=== PATIENT | female | born 1950 | race African-American/Black ===

== ENCOUNTER 2023-01-12 12:35 | Emergency (ER) | payer OTHER ==
--- OUTSIDE RECORDS SUMMARY | 2023-01-12 12:38 | XMS REPORT | Continuity of Care Document ---
:1950 Author Organization [facility] t Address [address] 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 2022 MEDICARE ADVANTAGE 00:00:00 Problems Condition Condition Condition Status Onset Resolution Last Treating Co mments Source Name Details Category Date Date Treatment Clinician Date Pain of Pain of Disease Active 2020- Univers maxillary maxillary 3-26 ity of sinus sinus 00:00: [address] Hypertensi Hypertensi Disease Active 2019-0 U nivers ve ve 9-16 ity of disorder disorder 00:00: [address] Hyperchole Hyperchole Disease Active 2019-0 U nivers sterolemia sterolemia 9-16 it y of 00:00: [address] Allergies, Adverse Reactions, Alerts Allergy Allergy Status Severity Reaction(s) Onset Inactive Treating Comm ents Source Name Type Date Date Clinician NO KNOWN Drug Active Univers ALLERGIE Class ity of S [facility] Social History Social Habit Start Date Stop Date Quantity Comments Source Exposure to 2022-05-27 2022-06-06 Not sure [facility]-CoV-2 00:00:00 13:41:00 [facility] [place] (event) Branch Tobacco use and 2022-06-06 2022-06-06 Smokeless tobacco Un iversity of exposure 00:00:00 00:00:00 non-user [facility] Sex Assigned At [birth year] Universit y of 00:00:00 00:00:00 [facility] Smoking Status Start Date Stop Date Source Tobacco smoking consumption [facility] Never smoked tobacco [facility] Medications Ordered Filled Start Stop Current Ordering Indication Dosage Frequency Signature Comments Components Source Medication Medication Date Date Medication? Clinician (SIG) Name Name water for 2021-07- No PRN, Univers irrigation 08-14 Starting ity of irrigation 18:00: 18:42 [place] solution 00 :26 06/14/22 Medical at 1200, Branch Until Sun06/14/22 at 1242, Routine, Intra-op sodium 2021-07- No PRN, Univers chloride 08-14 Starting ity of (NS) 17:59: 18:42 on Sun [place] injection 00 :06/14/22 Medica l at 1159, Branch Until Sun06/14/22 at 1242, Routine, Intra-op neomycin-po 2021-07- No PRN, Unive rs lymyxin-dex 08-14 Starting ity of amethasone 17:59: 18:42 [place] (MAXITROL) 00 :26 06/14/22 Medic al 3.5 at 1159, Branch mg/g-10,000 Until Sun unit/g-0.1 06/14/22 % at 1242, ophthalmic Routine, ointment Intra-op Hyaluronida 2021-07- No PRN, Unive rs se, Human 08-14 Starting ity o f Recomb. 17:53: 18:42 on Sun [place] (HYLENEX) 00 :26 06/14/22 Medica l injection at 1153, Branch Until Sun06/14/22 at 1242, Routine, Intra-op eye block 2021-07- No PRN, Univers syringe 11 08-14 Starting ity of mL 17:52: 18:42 on Wed [place] 00 :26 06/14/22 Medical at 1152, Branch Until Sun06/14/22 at 1242, Intra-op EPINEPHrine 2021-07- No PRN, Unive rs 1:1,000 (08-14 Starting ity of mg/mL) 17:48: 18:42 on Sun [place] (ADRENALIN) 00 :26 06/14/22 Medi emiliano injection at 1148, Branch Until Sun06/14/22 at 1242, Routine, Intra-op chondroitin 2021-07- No PRN, Unive rs sulf-sod 08-14 Starting ity of hyaluronate 17:48: 18:42 on Sun [place] (DUOVISC 00 :06/14/22 Medical VISCO at 1148, Branch ELASTIC) Until Sun intraocular 06/14/22 injection at 1242, Routine, Intra-op dexamethaso 2021-07- No PRN, Unive rs ne 08-14 Starting ity of (DECADRON 17:48: 18:42 on Sun [place] PHOSPHATE) 00 :06/14/22 Medic al injection at 1148, Branch Until Sun06/14/22 at 1242, Routine, Intra-op ceFAZolin 2021-07- No PRN, Univers (ANCEF) 08-14 Starting ity of injection 17:47: 18:42 on Wed [place] 00 :26 06/14/22 Medical at 1147, Branch Until Sun06/14/22 at 1242, DARRELL, Intra-op carbachoL 2021-07- No PRN, Univers (MIOSTAT) 08-14 Starting ity o f 0.01 % 17:46: 18:42 on Wed [place] intraocular 00 :26 06/14/22 Medi emiliano injection at 1146, Branch Until Sun06/14/22 at 1242, Routine, Intra-op balanced 2021-07- No PRN, Univers salt irrig 08-14 Starting ity of soln comb1 17:46: 18:42 [place] (BSS PLUS) 00 :26 06/14/22 Medic al ophthalmic at 1146, Branc h solution Until Sun 500 mL bag 06/14/22 at 1242, Routine, Intra-op cyclopent 2021-07- No .5mL 0.5 mL, Univ ers 1%-tropic -30 11-30 Right Eye, ity of 1%-phenyl 17:00: 16:56 ONCE, 1 [place] 2.5%-ketor 00 :00 dose, On Medic al 0.5% Sun Branch (MYDRIATIC 06/14/22 #5) at 1100, ophthalmic Routine, solution DSU Pre-op syringe 0.5 mL lactated 2021-07- No 1000mL at 42 Unive rs ringers IV 1-30 11-30 mL/hr, ity of infusion 17:00: 16:54 1,000 mL, [place] 1,000 mL 00 :00 IV Medical Infusion, Branch ONCE, 1 dose, On Sun06/14/22 at 1100, Routine, DSU Pre-op cyclopent 2021-07- No .5mL 0.5 mL, Univ ers 1%-tropic 08-14 Right Eye, ity of 1%-phenyl 17:00: 16:56 ONCE, 1 [place] 2.5%-ketor 00 :00 dose, On Medic al 0.5% Sun Branch (MYDRIATIC 06/14/22 #5) at 1100, ophthalmic Routine, solution DSU Pre-op syringe 0.5 mL lactated 2021-07 No 1000mL at 42 Unive rs ringers IV 1-30 11-30 mL/hr, ity of infusion 17:00: 16:54 1,000 mL, [place] 1,000 mL 00 :00 IV Medical Infusion, Branch ONCE, 1 dose, On Sun06/14/22 at 1100, Routine, DSU Pre-op amLODIPine 2021-07 Yes 10mg Take 10 mg U nivers 10 mg 1-30 by mouth ity of tablet 13:09: in the [place] [address] morning. Medical Branch amLODIPine 2021-07 Yes 10mg Take 10 mg U nivers 10 mg 1-30 by mouth ity of tablet 13:09: in the [place] [address] morning. Medical Branch amLODIPine 2021-07 Yes 10mg Take 10 mg U nivers 10 mg 1-30 by mouth ity of tablet 13:09: in the [place] [address] morning. Medical Branch hydroCHLORO 2021-07- No 12.5mg Take 12.5 Univers thiazide 1-30 11-22 mg by ity of 12.5 mg 12:42: 00:00 mouth in [place] capsule 26 :00 the Medical morning. Branch simvastatin 2021-07- No 10mg Take 10 mg Univers 10 mg 30 -22 by mouth ity of tablet 12:42: 00:00 at [place] 26 :00 bedtime. Medical Branch LOSARTAN 2021-07- No Univers POTASSIUM, 08-14- ity of BULK, MISC 12:42: 00:00 [place] 26 :00 Medical Branch hydroCHLORO 2021-07- No 12.5mg Take 12.5 Univers thiazide 1-30 11-22 mg by ity of 12.5 mg 12:42: 00:00 mouth in [place] capsule 26 :00 the Medical morning. Branch simvastatin 2021-07- No 10mg Take 10 mg Univers 10 mg 08-14- by mouth ity of tablet 12:42: 00:00 at [place] 26 :00 bedtime. Medical Branch LOSARTAN 2021-07- No Univers POTASSIUM, 08-14- ity of BULK, MISC 12:42: 00:00 [place] 26 :00 Medical Branch losartan 50 2021-0 Yes 50mg Take 50 mg Univers mg tablet 6-10 by mouth ity of 00:00: in the [place] 00 morning. Medical Branch hydroCHLORO 2021-0 Yes 12.5mg Take 12.5 Univers thiazide 6-10 mg by ity of 12.5 mg 00:00: mouth in [place] capsule 00 the Medical morning. Branch simvastatin 2021-0 Yes 10mg Take 10 mg Univers 10 mg 6-10 by mouth ity of tablet 00:00: in the [place] 00 morning. Medical Branch losartan 50 2021-0 Yes 50mg Take 50 mg Univers mg tablet 6-10 by mouth ity of 00:00: in the [place] 00 morning. Medical Branch hydroCHLORO 2021-0 Yes 12.5mg Take 12.5 Univers thiazide 6-10 mg by ity of 12.5 mg 00:00: mouth in [place] capsule 00 the Medical morning. Branch simvastatin 2021-0 Yes 10mg Take 10 mg Univers 10 mg 6-10 by mouth ity of tablet 00:00: in the [place] 00 morning. Medical Branch losartan 50 2021-0 Yes 50mg Take 50 mg Univers mg tablet 6-10 by mouth ity of 00:00: in the [place] morning. Medical Branch hydroCHLORO 2021-0 Yes 12.5mg Take 12.5 Univers thiazide 6-10 mg by ity of 12.5 mg 00:00: mouth in [place] capsule 00 the Medical morning. Branch simvastatin 2021-0 Yes 10mg Take 10 mg Univers 10 mg 6-10 by mouth ity of tablet 00:00: in the [place] morning. Medical Branch Vital Signs Vital Name Observation Time Observation Value Comments Source Systolic blood 2022-06-14 18:57:00 117 mm[Hg] Univer sity of pressure [facility] Diastolic blood 2022-06-14 18:57:00 57 mm[Hg] Unive rsity of [facility] Heart rate 2022-06-14 18:57:00 68 /min [facility] Respiratory rate 2022-06-14 18:57:00 10 /min [facility] Oxygen saturation in 2022-06-14 18:57:00 100 /min University of Arterial blood by [place] [employer] emiliano Pulse oximetry Branch Body temperature 2022-06-14 18:42:00 36.67 Kaylin [facility] Body height 2022-06-05 15:45:00 160 cm [facility] Body weight 2022-06-05 15:45:00 72.576 kg [facility] BMI 2022-06-05 15:45:00 28.34 kg/m2 [facility] Systolic blood 2022-06-14 16:52:00 154 mm[Hg] Univer sity of [facility] Diastolic blood 2022-06-14 16:52:00 81 mm[Hg] Unive rsity of [facility] Heart rate 2022-06-14 16:52:00 93 /min [facility] Body temperature 2022-06-14 16:52:00 36.83 Kaylin [facility] Respiratory rate 2022-06-14 16:52:00 16 /min [facility] Oxygen saturation in 2022-06-14 16:52:00 96 /min University of Arterial blood by [facility] Pulse oximetry [place] Body height 2022-06-05 15:45:00 160 cm [facility] Body weight 2022-06-05 15:45:00 72.576 kg [facility] BMI 2022-06-05 15:45:00 28.34 kg/m2 [facility] Procedures Procedure Date / Time Performing Source Performed Clinician PHACOEMULSIFICATION OF 2022-06-14 Elder Kaufman [facility] CATARACT WITH INTRAOCULAR 17:53:00 Medica [facility] LENS IMPLANT PATIENT QUESTIONNAIRE 2022-06-14 Doctor Unassjose, [facility] 06:01:00 [place] [facility] [place] ASSIGNMENT OF BENEFITS 2022-05-22 Doctor Unassigned, [facility] 22:17:57 [place] [facility] Encounters Start End Encounter Admission Attending Care Care Encounter Source Date/Time Date/Time Type Type Clinicians Facility Department ID 2022-06-14 2022-06-14 Outpatient [facility] [id number] Univers 10:44:00 [facility]09[facility] 2022-06-14 2022-06-14 Hospital General acute hospital [id number] Univers 10:44:00 13:09:00 Encounter Elder BEARD [id number] ity of [id number] [place] SURGICAL [id number] [facility] 071 Branch 2022-06-14 2022-06-14 Surgery General acute hospital [id number] Univers 11:28:00 12:02:00 Elder BEARD [id number] ity of [facility] [id number] [place] SUR[place]ICAL [id number] [facility] 020 Branch 2022-06-14 2022-06-14 Orders Doctor BILLINGSLEY [id number] Univers 00:00:00 00:00:00 Only Unassigned, DEION [id number] ity of [place] [facility] [id number] [place] [id number] [facility] 009 Branch 2022-05-22 2022-05-22 Technology Analyst Yves, Adc Lab Main [facility] [id number] Univers 16:30:00 16:45:00 Visit Elder [facility]auf[id number] [id number] [facility] [id number] Ms dical [address] 2022-05-22 2022-05-22 Outpatient R SHAE [facility] [id number] [facility] 16:30:00 16:30:00 ELDER berumen [facility] 2022-05-22 2022-05-22 Orders Doctor JOSE CRUZ [id number] Univers 00:00:00 00:00:00 Only Unassigned, DEION [id number] ity of [place] [facility] [id number] [place] [id number] [place] [address] Branch Results This patient has no known results.
[2023-01-12] MEDS ORDERED: BACITRACIN OINTMENT 14 GM TUBE TOP ONE (12:54)
--- NOTE | 2023-01-12 13:56 | RAD REPORT ---
EXAM DESCRIPTION: USExtremity Venous Uni Ltd01/12/2023 1:39 pm CLINICAL HISTORY: left leg pain COMPARISON: None FINDINGS: Left common femoral, superficial femoral, greater saphenous, popliteal and posterior tibi al veins are compressible and demonstrate augmentation. Doppler demonstrates good flow. Grayscale, color and spectral analysis performed on all vessels IMPRESSION: No evidence of deep venous thrombosis involving the left lower extremity.
[2023-01-12] MEDS ORDERED: MORPHINE 4 MG/ML SYR ONE (15:05)
--- NOTE | 2023-01-12 16:00 | ER ---
Nurse's Notes [facility] Name: Vivienne Brown Age: 72 yrs Sex: Female : 1950 Arrival Date: 01/12/2023 Time: 12:35 Bed 10 Private MD: Diagnosis: Pain in left lower leg Presentation: 01/12 12:51 Chief complaint: Patient states: L leg pain and cramping that began 1 week ago. No ss known injury. Coronavirus screen: Client denies travel out of the [place] in the last 14 days. Ebola Screen: Patient denies exposure to infectious person. Patient denies travel to an Ebola-affected area in the 21 days before illness onset. Initial Sepsis Screen: Does the patient meet any 2 criteria? No. Patient's initial sepsis screen is negative. Does the patient have a suspected source of infection? No. Patient's initial sepsis screen is negative. Risk Assessment: Do you want to hurt yourself or someone else? Patient reports no desire to harm self or others. Onset of symptoms was January 05, 2023. 12:51 Method Of Arrival: Ambulatory ss 12:51 Acuity: MANPREET 3 ss Historical: - Allergies: 12:52 No Known Allergies; ss - PMHx: 12:52 Hypertensive disorder; ss - PSHx: 12:52 None; ss - Immunization history:: Adult Immunizations up to date. - Social history:: Smoking status: Patient denies any tobacco usage or history of. Screenin:48 [facility] Fall Risk Assessment (Adult) History of falling in the last 3 months, mb9 including since admission No falls in past 3 months (0 pts) Confusion or Disorientation No (0 pts) Intoxicated or Sedated No (0 pts) Impaired Gait No (0 pts) Mobility Assist Device Used No (0 pt) Altered Elimination No (0 pt) Score/Fall Risk Level 0 - 2 = Low Risk Oriented to surroundings, Maintained a safe environment, Educated pt \T\ family on fall prevention, incl call for assistance when getting out of bed. Abuse screen: Denies threats or abuse. Nutritional screening: No deficits noted. Tuberculosis screening: No symptoms or risk factors identified. Assessment: 13:44 General: Appears in no apparent distress. Pain: Complains of pain in right leg and left mb9 leg. Neuro: Barreto Agitation-Sedation Scale (RASS): 0 - Alert and Calm Level of Consciousness is awake, alert, obeys commands, Oriented to person, place, time, situation, Appropriate for age. Cardiovascular: Patient's skin is warm and dry. Respiratory: Airway is patent Respiratory effort is even, unlabored, Respiratory pattern is regular, symmetrical. Derm: Skin is pink, warm \T\ dry. Musculoskeletal: Range of motion: intact in all extremities, Reports pain in right leg and left leg. 15:46 Reassessment: No changes from previously documented assessment. Patient and/or family mb9 updated on plan of care and expected duration. Pain level reassessed. Patient is alert, oriented x 3, equal unlabored respirations, skin warm/dry/pink. Vital Signs: 12:51 BP 131 / 78; Pulse 92; Resp 16; Temp 98.3(TE); Pulse Ox 99% on R/A; Weight 79.83 kg; ss Height 5 ft. 3 in. ; Pain 9/10; 15:46 BP 125 / 74; Pulse 84; Resp 18; Pulse Ox 100% on R/A; mb9 12:51 Body Mass Index 31.18 (79.83 kg, 160.02 cm) ss 12:51 Pain Scale: Adult ss ED Course: 12:37 Patient arrived in ED. rg4 12:45 Joel Rose PA is PHCP. toña 12:45 Charlie Hayes DO is Attending Physician. toña 12:52 Triage completed. ss 12:52 Arm band placed on right wrist. ss 13:40 US Extremity Venous Unilateral Ltd In Process Unspecified. EDMS 13:45 Placed in gown. Bed in low position. Call light in reach. Side rails up X 1. Client mb9 placed on continuous cardiac and pulse oximetry monitoring. NIBP monitoring applied. 14:47 No provider procedures requiring assistance completed. Patient did not have IV access mb9 during this emergency room visit. 16:02 Elder Yun MD is Referral Physician. toña Administered Medications: 13:10 Drug: Diazepam PO 5 mg Route: PO; ll1 13:44 Follow up: Response: No adverse reaction mb9 15:00 Drug: morphine IM 4 mg Route: IM; Site: right gluteus; mb9 Medication: 13:45 VIS not applicable for this client. mb9 Outcome: 16:00 Discharge ordered by . toña 16:10 Discharged to home ambulatory. mb9 16:10 Condition: stable 16:10 Discharge instructions given to patient, Instructed on discharge instructions, follow up and referral plans. Demonstrated understanding of instructions, follow-up care, medications, Prescriptions given X 2. 16:11 Patient left the ED. mb9 Signatures: Dispatcher [employer] EDMS Joel Rose PA PA jmm Blanchard, [place], RN RN Piedad Kirkland 4 Gillian Rojas RN RN 1 Yoon Cardona RN RN mb9
--- NOTE | 2023-01-12 16:00 | EDPHYS ---
Physician Documentation [facility] Name: Vivienne Brown Age: 72 yrs Sex: Female : 1950 Arrival Date: 01/12/2023 Time: 12:35 Bed 10 Private MD: ED Physician Charlie Hayes HPI: 01/12 12:57 This 72 yrs old Black Female presents to ER via Ambulatory with complaints of Leg Pain. [facility] 12:57 Is a 72-year-old female with history of hypertension the presents emerged part with [facility] complaints of left lateral calf pain beginning approximately week ago. Patient was seen at [place] ER with negative ultrasound and x-ray. Patient continues to have pain. Denies fever, shortness of breath, chest pain. Patient has pain on ambulation. Historical: - Allergies: 12:52 No Known Allergies; ss - PMHx: 12:52 Hypertensive disorder; ss - PSHx: 12:52 None; ss - Immunization history:: Adult Immunizations up to date. - Social history:: Smoking status: Patient denies any tobacco usage or history of. ROS: 12:57 Constitutional: Negative for fever, chills, and weight loss, Cardiovascular: Negative [facility] for chest pain, palpitations, and edema, Respiratory: Negative for shortness of breath, cough, wheezing, and pleuritic chest pain. 12:57 MS/extremity: Positive for pain. 12:57 All other systems are negative. Exam: 12:57 Constitutional: This is a well developed, well nourished patient who is awake, alert, jmm and in no acute distress. Head/Face: atraumatic. Eyes: EOMI, no conjunctival erythema appreciated ENT: Moist Mucus Membranes Neck: Trachea midline, Supple Chest/axilla: Normal chest wall appearance and motion. Cardiovascular: Regular rate and rhythm. No edema appreciated Respiratory: Normal respirations, no respiratory distress appreciated Abdomen/GI: Non distended Back: Normal ROM Skin: General appearance color normal 12:57 Musculoskeletal/extremity: Nails: Pain elicited on palpation of the left gastrocs, compartments are soft, full dorsalis pedis pulse, neurovascular. 12:57 Skin: Appearance: Color: normal in color. 12:57 Neuro: Orientation: is normal, Mentation: is normal, Memory: is normal. 12:57 Psych: Behavior/mood is pleasant, cooperative. Vital Signs: 12:51 BP 131 / 78; Pulse 92; Resp 16; Temp 98.3(TE); Pulse Ox 99% on R/A; Weight 79.83 kg; ss Height 5 ft. 3 in. ; Pain 9/10; 15:46 BP 125 / 74; Pulse 84; Resp 18; Pulse Ox 100% on R/A; mb9 12:51 Body Mass Index 31.18 (79.83 kg, 160.02 cm) ss 12:51 Pain Scale: Adult ss MDM: 12:57 Patient medically screened. [facility] 17:59 Differential diagnosis: DVT, cellulitis, myositis, gastroc strain. Data reviewed: vital [facility] signs, nurses notes, lab test result(s). I considered the following discharge prescriptions or medication management in the emergency department Medications were administered in the Emergency Department. See MAR. Counseling: I had a detailed discussion with the patient and/or guardian regarding: the historical points, exam findings, and any diagnostic results supporting the discharge/admit diagnosis, radiology results, the need for outpatient follow up, to return to the emergency department if symptoms worsen or persist or if there are any questions or concerns that arise at home. ED course: Pain is decreased in the ED. Patient still advised to follow-up with orthopedics for further evaluation of her pain. I do not currently suspect DVT or arterial occlusion. Patient advised to return to the ED if symptoms worsen. 01/12 12:57 Order name: US Extremity Venous Unilateral Ltd; Complete Time: 14:03 [facility] 01/12 14:56 Order name: Misc. Order: walker; Complete Time: 15:08 [facility] Administered Medications: 13:10 Drug: Diazepam PO 5 mg Route: PO; ll1 13:44 Follow up: Response: No adverse reaction mb9 15:00 Drug: morphine IM 4 mg Route: IM; Site: right gluteus; mb9 Disposition: 18:06 Co-signature as Attending Physician, Charlie PAREKH was immediately available on-site ms3 in the Emergency Department for consultation in the care of the patient. Disposition Summary: 01/12/23 16:00 Discharge Ordered Location: Home [facility] Condition: Stable [facility] Diagnosis - Pain in left lower leg [facility] Followup: [facility] - With: Private Physician - When: 2 - 3 days - Reason: Recheck today's complaints, Continuance of care, Re-evaluation by your physician Followup: [facility] - With: Elder Yun MD - When: 2 - 3 days - Reason: Recheck today's complaints, Continuance of care, Re-evaluation by your physician Discharge Instructions: - Discharge Summary Sheet [facility] - Musculoskeletal Pain [facility] Forms: - Medication Reconciliation Form [facility] - Thank You Letter [facility] - Antibiotic Education [facility] - Prescription Opioid Use [facility] - [email or web address] [facility] Prescriptions: - diclofenac sodium 3 % Topical gel - apply 0.5 gram by TOPICAL route 2 times per day As needed; 1 unit; Refills: 0, [facility] Product Selection Permitted - Zanaflex 4 mg Oral Tablet - take 1 tablet by ORAL route every 8 hours As needed; 30 tablet; Refills: 0, [facility] Product Selection Permitted Signatures: [facility] ED[facility] Curran PA PA Saray Wang RN RN ss Gillian Rojas RN RN ll1 Charlie Hayes DO DO ms3 Yoon Cardona RN RN mb9
[2023-01-12 16:15] VITALS: TEMP 98.3
[2023-01-12 16:18] VITALS: BP 125/74; O2SAT 100
== END 2023-01-12 16:11 | disposition home or self-care (01) ==
LOC: ER 12:35
DX: M79.662 Pain in left lower leg (principal)
CPT/HCPCS: 93971; 96372; 99284